=== PATIENT | male | born 2005 | race Two or more races ===

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

== ENCOUNTER 2024-08-01 19:55 | Emergency (ER) | payer OTHER, SELFPAY ==
--- OUTSIDE RECORDS SUMMARY | 2024-08-01 19:57 | XMS_ITS | Data Portability ---
Author Organization [facility] Address [address] [place] [id number] Assessment No assessment recorded. Plan of Treatment Reminders Order Date Submit Date Provider Last Modified By Organization Details Last Modified Time Details Appointments None record ed. Lab None record ed. Referral None record ed. Procedures None record ed. Surgeries None record ed. Imaging XR, finger (s), 2 or more view 024 10/13/19 24 [email or web address] Not available 4 17:21:58 Medication Orders None record ed. Patient TargetsNo targets recorded. Patient InstructionsNo instructions recorded. Reason for Referral None Reported. Problems Name Problem SNOMED Code Status Onset Date Resolution Date Notes Provider Name and Address Organization Details Recorded Time Attention deficit hyperactivity disorder, combined type [id number] Active 2011 Esequiel Gerardo MD [address] [place], [phone] [place] [address] [facility] 0 08:09:09 Notes:Problem: Attention def icit hyperactivity disorder combined Status: Chronic Problem Notes None recorded. Medical Equipment None Reported. Medications Name Sig Start Date Stop Date Status Note LastModified by Organization Details LastModified Time methylphenida te 10 mg tablet take 1 tablet by mouth twice daily, everyday, with breakfast and lunch 2020 active Not Available Not Available Not Avai lable famotidine 20 mg tablet TAKE 1 TABLET (20 MG) BY MOUTH ONCE DAILY FOR 14 DAYS. active Not Available Not Available No t Available Vitals None Recorded Social History None recorded. Functional Status None recorded. Mental Status None recorded. Family History Nothing Reported. Medical History No medical history recorded. Past Encounters Encounter ID Performer Location Encounter Start Date Encounter Closed Date Diagnosis/Indication Diagnosis SNOMED-CT Code Diagnosis ICD10 Code Diagnosis Note [id number] MD [facility] OFF[facility] [address] [place] [address] 10/13/2023 15:37:50 10/13/2023 16:06:50 Pain in left thumb [id number] M79.645 - return to work order written- XR ordered to be done if symptoms were to change/wor sen, reviewed return precaution s Health Concerns Section Related Observation LastModified by Organization Detai ls LastModified Time None Recorded Concern Status LastModified by Organization Details LastModified Time None Recorded Advance Directives Directive None Recorded Payers Encounter Date Sequence Insurance Name Policy Number Policy De León Covered Member ID De León Member ID Guarantor Name 10/13/2023 SLIDING FEE SCHEDULE - DISCOUNT Rossana Barrett Notes Date Note Type Note Provider Name and Address Organization Details Recorded Time 10/13/2023 text/html Devang is in wit h his father today for a L thumb injury.6 days ago, he jammed his L thumb while playing basketball (R hand dominant).He's been resting it and it overall feels better, has full ROM. Mild discomfort with flexion, no clicks.Mild bruising when injury happened, normal coloration now. 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 Alysha Elias MD [address] [facility] [place], [address], [facility] 10/13/2023 17:18:16
--- OUTSIDE RECORDS SUMMARY | 2024-08-01 19:57 | XMS_ITS | Clinical Summary ---
Author Organization [facility] Address [address] [place] [address] Care Team Providers Care Manager Civil Name Role Phone Pcp, No Primary Care Provider Unavailabl e Allergies Active Allergy Reactions Criticality Noted Date Comments Blueberry Rash 06/21/2022 Unlisted Allergen (Include Detail In Comments) Shortness Of Breath 06/21/2022 Pt reports is allergic to Red Bull and he has difficulty breathing when he ingests it Medications ondansetron (ZOFRAN ODT) 4 mg disintegrating tabletIndications:N ausea Place 2 Tablets (8 mg) on the tongue two times daily. 12 Tablet 3 Active Active Problems No known active problems Immunizations Immunization Administration Dates Next Due DTaP 05/16/2008, 6,2004,07/26 [id number] (Pediarix) 2004 HIB PRP-OMP (PedvaxHIB) 2004 HIB PRP-T (ActHIB,Hiberix) 2004,2004 Hepatitis A (Peds) 06/13/2009,04/15/2006 Hepatitis B (Peds) 2004,2004 Inactivated Polio Vaccine 05/16/2008,2004, 2004 Influenza Virus, Unspecified 04/10/2010,04/15/20 06 MENINGOCOCCAL VACCINE 2 VIAL 2MO-55YO (MENVEO) 10/24/2015 MMR 05/16/2008,06/27/2005 Pneumococcal conj 7-Valent (Prevnar 7) 1 2004,2004,2004,05/29 [...] Paying Living Expenses Not on file 04/28/2021 Interpersonal Safety Answer Date Record ed Are you being hit, kicked, p ushed or yelled at (see row info)? No 11/25/2023 Interpersonal Safety Abuse 12 - 18 Not on file 11/25/2023 Interpersonal Safety Ambulatory Vulnerability No t on file 11/25/2023 Sex and Gender Information Value Date Recorded Sex Assigned at Not on file Legal Sex Male 3:54 PM SURFACE BOSS Gender Identity Not on file Sexual Orientation Not on file Obstetrics History Last Filed Vital Signs Vital Sign Reading Time Taken Comments Blood Pressure 106/80 11/25/2023 11:26 PM CDT Pulse 68 11/25/2023 11:26 PM CDT Temperature 36.8 C (98.3 F) 11/25/2023 11:26 PM CDT Respiratory Rate 18 11/25/2023 11:26 PM CDT Oxygen Saturation 99% 11/25/2023 11:26 PM CDT Inhaled Oxygen Concentration - - Weight 60.8 kg (134 lb) 11/25/2023 11:26 PM CDT Height 172.7 cm (5' 8) 11/25/2023 11:26 PM CDT Body Mass Index 20.37 11/25/2023 11:26 PM CDT Plan of Treatment Health Maintenance Due Date Last Done Comments Depression screening for age 12+ 01/06/2018 01/06/2017 Well Child Check for age 3-20 01/06/2018 01/06/2017 HPV series for age 9-26 (1 - Male 3-dose series) 2019 BMI (ht and wt on same day) for age 18+ 2022 Hepatitis C screening for age 18-79 2022 COVID-19 vaccine series ( season) 2023 Influenza Vaccine (Season Ended) 2024 04/10/2010, 04/15/2006 Tetanus booster 10/23/2025 10/24/2015 Pneumococcal series for age 6-49 Aged Out 04/02/2005, 2004, 2004, Additional history exists No longer eligible based on patient's age to complete this topic Meningococcal series for age 11-21 Aged Out 10/24/2015 No longer eligible based on patient's age to complete this topic Tdap Completed 10/24/2015 HIV for age 15-65 Completed 04/25/2023 Procedures Procedure Name Priority Date/Time Associated Diagnosis Comments RAPID HIV SCREEN STAT 04/25/2023 6:49 PM SURFACE BOSS from Last 3 Months or Most Recently Relevant to Health Maintenance Results * RAPID HIV SCREEN (04/25/2023 6:49 PM SURFACE BOSS) RAPID HIV SCREEN Non-React ashkan Non-Reactiv e, Invalid 04/25/2023 7:59 PM SURFACE BOSS [facility] Comment:A NONREACTIVE test r esult means that HIV-1 or HIV-2 antibodies and HIV-1 p24 antigen were not detected in the specimen. Blood BLOOD SPECIMEN / Unknown Butterfly / Unknown 04/25/2023 6:49 PM SURFACE BOSS 04/25/2023 7:00 PM SURFACE BOSS Sophia Epps MD CHEMISTRY Final Result [facility] [address] [place] [address] from Last 3 Months or Most Recently Relevant to Health Maintenance Care Teams Manager Civil Relationship Specialty Start Date End Date Pcp, No . PCP - General 09/08/19
[2024-08-01 19:58] VITALS: BP 125/81; PULSE 78; RESP 16; TEMP 36.4; O2SAT 99; BMI 22.2
[2024-08-01 20:51] LABS: Basophils Absolute Auto 0.03 K/uL (0.00-0.30); Basophils Percent Auto 0.4 % (0.0-3.0); Eosinophils Absolute Auto 0.09 K/uL (0.00-0.50); Eosinophils Percent Auto 1.3 % (0.0-7.0); Hematocrit 43.1 % (37.0-53.0); Immature Granulocytes Abs Auto 0.01 K/uL (0.00-0.30); Immature Granulocytes Pct Auto 0.1 %; Lymphocytes Percent Auto 35.9 % (20-44); Mean Corpuscular HGB Conc 33 gm/dL (32-36); Mean Corpuscular Hemoglobin 27 pg (26-34); Mean Corpuscular Volume 83 fL (80-100); Monocytes Percent Auto 7.2 % (0.0-11.0); Neutrophils Absolute Auto 3.68 K/uL (1.7-7.0); Neutrophils Percent Auto 55.1 % (42.0-72.0); Platelet Count* 243 K/uL (140-440); RDW Coefficient of Variation % 13.3 % (11.5-15.5); Red Blood Count 5.18 m/uL (4.30-5.90); White Blood Count* 6.69 K/uL (4.50-11.00)
[2024-08-01 20:53] LABS: Slide Review Reflex No
[2024-08-01 21:03] LABS: Chloride* 101 mmol/L (96-114); Sodium* 137 mmol/L (135-149)
[2024-08-01 21:04] LABS: Potassium* 3.9 mmol/L (3.6-5.1)
[2024-08-01 21:06] LABS: Alanine Aminotransferase* 31 U/L (4-50); Alkaline Phosphatase* 107 U/L (40-150); Anion Gap 11 mEq/L (7-15); Aspartate Amino Transferase* 46 U/L (12-35); Bilirubin Direct* 0.3 mg/dL (0.0-0.5); Bilirubin Total* 0.6 mg/dL (0.1-1.5); Blood Urea Nitrogen* 24 mg/dL (5-24); Calcium* 9.4 mg/dL (8.4-10.6); Carbon Dioxide* 25 mmol/L (20-32); Creatinine* 1.1 mg/dL (0.5-1.5); Est. Creatinine Clearance* 103.09; Estimated Glomerular Filt Rate 99 ml/min; Glucose* 104 mg/dL (60-115); Total Protein* 7.9 g/dL (6.0-8.3)
--- OUTSIDE RECORDS SUMMARY | 2024-08-01 21:07 | XMS_ITS | Clinical Summary ---
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 Blood BLOOD SPECIMEN / Unknown Butterfly / Unknown 04/25/2023 6:49 PM ASSISTANT STRENGTH COACH 04/25/2023 7:00 PM ASSISTANT STRENGTH COACH Sophia Epps MD CHEMISTRY Final Result [facility] [address] [place] [address] from Last 3 Months or Most Recently Relevant to Health Maintenance Care Teams Health Care Consultant Relationship Specialty Start Date End Date Pcp, No . PCP - General 09/08/19
[2024-08-01 21:08] LABS: Acetaminophen* < 10.0 ug/mL (10.0-30.0); Ethanol* < 0.01 % (0.01-0.03); Salicylate* < 1.0 mg/dL (1.0-10)
[2024-08-01 21:37] LABS: Thyroid Stimulating Hormone* 0.775 uIU/mL (0.270-4.20)
[2024-08-01 21:54] LABS: Amphetamine Screen Urine Negative (Negative); Barbiturate Screen Urine Negative (Negative); Benzodiazepines Screen Urine Negative (Negative); Cannabinoid Screen Urine Negative (Negative); Cocaine Screen Urine Negative (Negative); Methadone Screen Urine Negative (Negative); Methamphetamines Screen Urine Negative (Negative); Opiate Screen Urine Negative (Negative); Oxycodone Screen Urine Negative (Negative); Phencyclidine Screen Urine Negative (Negative); Tricyclic Antidepressant Urine Negative (Negative)
--- NOTE | 2024-08-01 21:56 | ED_ITS ---
HPI - Anxiety General Date Seen: 08/01/24 Chief Complaint: Anxiety Stated Complaint: Shortness of breath, chest pain Time Seen by Provider: 08/01/24 20:00 Source: patient and family Mode of arrival: ambulatory Limitations: no limitations History of Present Illness HPI narrative: Patient is a 19-year-old gentleman who presents here with her mother for evaluation of an anxiety attack. He notes that this occurred approximately an hour and half to 2 hours ago, lasted for approximately an hour and felt with chest pain shortness of breath. He typically gets these after night of drinking any did drink 6 beers. He has been drinking a lot over the last few weeks on the weekends, due to a lot of stress involved with a relationship that he has in his inability to see his young child. He denies any suicidal or homicidal ideation, but says he does feel sad. He notes that he is not suicidal or homicidal associated with this. Has no chest pain now no shortness of breath no nausea vomiting. There is a family history of anxiety and also depression in the family. He also admits he thinks he may have an alcohol issue. On the weekends denies any use of any drugs other than occasional marijuana. complaint: anxiety Onset (ago): hour(s) Symptoms: dyspnea and chest pain Severity: moderate History of similar episodes: Yes Provoking factors: emotional stress Relieving factors: deep breaths Exacerbating factors: nothing Associated symptoms: chest pain Related Data Previous Rx's ?Medication ?Instructions ?Recorded polyethylene glycol 3350 17 17 g PO .daily - tid PRN #238 grams 11/20/23 gram/dose oral powder (Miralax) Allergies Allergy/AdvReac Type Severity Reaction Status Date / Time No Known Drug Allergies Allergy Verified 11/19/23 22:12 Review of Systems Status of ROS: Reports: 10 or more systems reviewed and unremarkable except as noted in History and below [facility] Social History Smoking Status: Former smoker Second hand tobacco smoke exposure: No How often do you have a drink containing alcohol: 2-4 times a month How often do you have six or more drinks on one occasion: Monthly AUDIT-C Alcohol total score: 4 Non-prescribed substance use: denies use service: No Exam Narrative: Exam Narrative: On examination with his mother in room 1 he is in no apparent distress is pleasant alert his vital signs are normal pupils equal round reactive to light there is no scleral icterus redness is TMs are normal his oropharynx is normal there is no adenopathy anterior posterior chains his chest is good air entry bilateral with no wheezing crackles noted his heart sounds are normal he has no tremulousness noted. Abdomen is soft there is no guarding no organomegaly moves all extremities independently and well. Const: Vital Signs, click to edit/add: Vital Signs - 24 hr 08/01/24 19:58 Temperature 97.6 F Pulse Rate [Left P ulse Oximeter] 78 Respiratory Rate 16 Blood Pressure [Ri ght Upper Arm] 125/81 Pulse Oximetry 99 Oxygen Delivery Me thod Room Air Course Vital Signs Vital signs: Initial Vital Signs Temperature 97.6 F 08/01/24 19:58 Temperature Source Temporal Artery Scan 08/01/24 19:58 Pulse Rate 78 08/01/24 19:58 Pulse Rhythm Regular 08/01/24 19:58 Respiratory Rate 16 08/01/24 19:58 Blood Pressure 125/81 08/01/24 19:58 Blood Pressure Mean 95 08/01/24 19:58 Blood Pressure Position Sitting 08/01/24 19:58 Pulse Oximetry 99 08/01/24 19:58 Oxygen Delivery Method Room Air 08/01/24 19:58 Vital Signs Temperature 97.6 F 08/01/24 19:58 Pulse Rate 78 08/01/24 19:58 Respiratory Rate 16 08/01/24 19:58 Blood Pressure 125/81 08/01/24 19:58 Pulse Oximetry 99 08/01/24 19:58 Oxygen Delivery Method Room Air 08/01/24 19:58 Temperature 97.6 F 08/01/24 19:58 Pulse Rate 78 08/01/24 19:58 Respiratory Rate 16 08/01/24 19:58 Blood Pressure 125/81 08/01/24 19:58 Pulse Oximetry 99 08/01/24 19:58 Oxygen Delivery Method Room Air 08/01/24 19:58 MDM - Anxiety MDM Narrative Medical decision making narrative: Differential diagnosis includes but is not limited to psychosocial stress, thyroid abnormalities, CHF, SVT, atrial fibrillation, ventricular tachycardia and ventricular fibrillation. This includes the life-threatening complications of heart failure, V-tach, and VFib Differential Diagnosis Differential diagnosis: Likely hyperventilation, panic disorder and acute anxiety Medical Records Attestation: I reviewed the patient's medical records. Lab Data Attestation: I reviewed the patient's lab results. Labs: Lab Results 08/01/24 08/01/24 Range/Units 20:40 21:30 WBC 6.69 (4.50-11.00) K/uL RBC 5.18 (4.30-5.90) m/uL Hgb 14.0 (13.5-17.5) gm/dL Hct 43.1 (37.0-53.0) % MCV 83 (80-100) fL MCH 27 (26-34) pg MCHC 33 (32-36) gm/dL RDW Coeff of Asif 13.3 (11.5-15.5) % Plt Count 243 (140-440) K/uL Neut % (Auto) 55.1 (42.0-72.0) % Lymph % (Auto) 35.9 (20-44) % [place] % (Auto) 7.2 (0.0-11.0) % Eos % (Auto) 1.3 (0.0-7.0) % Baso % (Auto) 0.4 (0.0-3.0) % Neut # (Auto) 3.68 (1.7-7.0) K/uL Lymph # (Auto) 2.40 (0.90-2.90) K/uL [place] # (Auto) 0.50 (0.00-0.90) K/UL Eos # (Auto) 0.09 (0.00-0.50) K/uL Baso # (Auto) 0.03 (0.00-0.30) K/uL Abs Immat Gran (auto) 0.01 (0.00-0.30) K/uL Imm/Tot Granulo (auto) 0.1 % Sodium 137 (135-149) mmol/L Potassium 3.9 (3.6-5.1) mmol/L Chloride 101 (96-114) mmol/L Carbon Dioxide 25 (20-32) mmol/L Anion Gap 11 (7-15) mEq/L BUN 24 (5-24) mg/dL Creatinine 1.1 (0.5-1.5) mg/dL Estimated Creat Clear 103.09 Estimated GFR 99 ml/min Glucose 104 (60-115) mg/dL Calcium 9.4 (8.4-10.6) mg/dL Total Bilirubin 0.6 (0.1-1.5) mg/dL Direct Bilirubin 0.3 (0.0-0.5) mg/dL AST 46 H (12-35) U/L ALT 31 (4-50) U/L Alkaline Phosphatase 107 (40-150) U/L Total Protein 7.9 (6.0-8.3) g/dL Albumin 5.0 (3.3-5.0) g/dL TSH 0.775 (0.270-4.20) uIU/mL Salicylates < 1.0 L (1.0-10) mg/dL Urine Opiates Screen Negative (Negative) Ur Oxycodone Screen Negative (Negative) Urine Methadone Screen Negative (Negative) Acetaminophen < 10.0 (10.0-30.0) ug/mL Ur Barbiturates Screen Negative (Negative) U Tricyclic Antidepress Negative (Negative) Ur Phencyclidine Scrn Negative (Negative) Ur Amphetamines Screen Negative (Negative) U Methamphetamines Scrn Negative (Negative) U Benzodiazepines Scrn Negative (Negative) Urine Cocaine Screen Negative (Negative) U Marijuana (THC) Screen Negative (Negative) Ur Drug Screen Comment See Note Ethyl Alcohol < 0.01 (0.01-0.03) % ECG Data Attestation: I personally reviewed and interpreted this ECG as follows: ECG interpretation date: 08/01/24 Prior ECG tracings: not available for review Interpretation: EKG done with the primary indication of shortness of breath this shows normal sinus rhythm with a ventricular rate of 70 evidence of early repolarization is noted across the precordial leads, QRS is normal at 98 milliseconds QT and QTC are normal. Assessment: Normal sinus rhythm, early repolarization otherwise normal. Discharge Plan Discharge Clinical Impression: Hyperventilation, Acute anxiety Patient Disposition: Home w/ Parent or Adult Condition: Improved Instructions: Hyperventilation (ED), Generalized Anxiety Disorder (ED), Panic Disorder (ED), Anxiety (ED) Additional Instructions: I strongly suggest you follow-up with a primary care physician for this, avoidance of alcohol is also strongly suggested, your glucose was normal as is was hemoglobin WBC count. Her drug screen did not show any evidence of drugs. Liver tests were slightly elevated which tells me your drinking too much in her liver is taking a hit. I recommend absence of alcohol, not using it for dealing with ear issues. Activity Level: Light activity Discharge Diet: Regular Prescriptions: No Action polyethylene glycol 3350 [Miralax] 17 gram/dose powder 17 g PO .daily - tid PRNQty: 238 0RF Follow Up/Referrals: Provider,Not a Local [Primary Care Provider] - Stand Alone Forms: [facility] Info Instructions
[2024-08-01 22:11] VITALS: BP 123/78; PULSE 76; RESP 20
== END 2024-08-01 22:11 | disposition home or self-care (01) ==
PROVIDERS: Emergency Provider Family Medicine
DX: R06.4 Hyperventilation (principal); F41.9 Anxiety disorder, unspecified
CPT/HCPCS: 36415; 80048; 80076; 80143; 80179; 80306; 82077; 84443; 85025; 93005; 99284

== ENCOUNTER 2024-12-27 14:55 | Emergency (ER) | payer OTHER, SELFPAY ==
[2024-12-27 14:57] VITALS: BP 128/70; PULSE 98; RESP 16; TEMP 36.3; O2SAT 98; BMI 24.3
--- OUTSIDE RECORDS SUMMARY | 2024-12-27 14:57 | XMS_ITS | Clinical Summary ---
Author Organization [employer] [facility] Address [address] [place] [id number] Care Team Providers Care Manager Instrumentation Name Role Phone Pcp, No Primary Care Provider Unavailabl e Allergies Active Allergy Reactions Criticality Noted Date Comments Blueberry Rash 06/21/2022 Unlisted Allergen (Include Detail In Comments) Shortness Of Breath 06/21/2022 Pt reports is allergic to Red Bull and he has difficulty breathing when he ingests it Medications ondansetron (ZOFRAN ODT) 4 mg disintegrating tabletIndications: Nausea Place 2 Tablets (8 mg) on the tongue two times daily. 12 Tablet 06/21/19 23 Active polyethylene glycoL 17 gram/scoop powderIndications: Constipation, unspecified constipation type Mix 1 scoop (17 g) in liquid then take by mouth once daily. 238 g 09/10/19 25 Active bisacodyL 10 mg suppositoryIndicat ions:Left lower quadrant abdominal pain Insert 1 Suppository (10 mg) rectally once daily if needed for Constipation. 14 Suppository 09/10/19 25 Active Active Problems No known active problems Immunizations Immunization Administration Dates Next Due DTaP 05/16/2008, 6,2004,07/26 [id number] (Pediarix) 2004 HIB PRP-OMP (PedvaxHIB) 2004 HIB PRP-T (ActHIB,Hiberix) 2004,2004 Hepatitis A (Peds) 06/13/2009,04/15/2006 Hepatitis B (Peds) 2004,2004 Inactivated Polio Vaccine 05/16/2008,2004, 2004 Influenza Virus, Unspecified 04/10/2010,04/15/20 MENINGOCOCCAL VACCINE 2 VIAL [id number]-55YO (MENVEO) 10/24/2015 [...] or yelled at (see row info)? 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 Gender Identity Not on file Sexual Orientation Not on file Obstetrics History Last Filed Vital Signs Vital Sign Reading Time Taken Comments Blood Pressure 119/70 09/10/2024 12:11 AM CDT Pulse 72 09/10/2024 12:11 AM CDT Temperature 36.9 C (98.5 F) 09/09/2024 10:43 PM CDT Respiratory Rate 16 09/10/2024 12:1 1 AM CDT Oxygen Saturation 98% 09/10/2024 12: 11 AM CDT Inhaled Oxygen Concentration - - Weight 67.9 kg (149 lb 12.8 oz) 025 10:43 PM CDT Height 172.7 cm (5' 8) 09/09/2024 10:4 3 PM CDT Body Mass Index 22.78 09/09/2024 10:43 PM CDT Plan of Treatment Health Maintenance Due Date Last Done Comments Depression screening for age 12+ 01/06/2018 01/06/2017 Well Child Check for age 3-20 01/06/2018 01/06/2017 HPV series for age 9-26 (1 - Male 3-dose series) 2019 BMI (ht and wt on same day) for age 18+ 2022 Hepatitis C screening for age 18-79 2022 COVID-19 vaccine series ( - season) 2023 Influenza Vaccine (#1) 2024 04/10/2010, 2005 Tetanus booster 10/23/2025 10/24/2015 Hepatitis B series for 19+ Completed 11/26, 2004, 2004 Pneumococcal series for age 6-49 Aged Out 04/02/2005, 2004, 2004, Additional history exists No longer eligible based on patient's age to complete this topic Meningococcal series for age 11-21 Aged Out 10/24/2015 No longer eligible based on patient's age to complete this topic HIV for age 15-65 Completed 04/25/2023 Procedures Procedure Name Priority Date/Time Associated Diagnosis Comments RAPID HIV SCREEN STAT 04/25/2023 6:49 PM INSURANCE RISK SURVEYOR from Last 3 Months or Most Recently Relevant to Health Maintenance Results * RAPID HIV SCREEN (04/25/2023 6:49 PM INSURANCE RISK SURVEYOR) RAPID HIV SCREEN Non-React ashkan Non-Reactiv e, Invalid 04/25/2023 7:59 PM INSURANCE RISK SURVEYOR [facility] Comment:A NONREACTIVE test r esult means that HIV-1 or HIV-2 antibodies and HIV-1 p24 antigen were not detected in the specimen. Blood BLOOD SPECIMEN / Unknown Butterfly / Unknown 04/25/2023 6:49 PM INSURANCE RISK SURVEYOR 04/25/2023 7:00 PM INSURANCE RISK SURVEYOR us Sophia Epps MD CHEMISTRY Final Result [facility] [address] [place] [address] from Last 3 Months or Most Recently Relevant to Health Maintenance Care Teams Manager Instrumentation Relationship Specialty Start Date End Date Pcp, No . PCP - General 09/08/19
--- NOTE | 2024-12-27 15:06 | ED.EAR ---
HPI - Ear Problem General Chief complaint: Ear/Nose/Throat Problem Stated complaint: R ear pain Time Seen by Provider: 12/27/24 14:57 History of Present Illness HPI Narrative: Patient is a 19-year-old gentleman who comes in today with right-sided ear pain of 2 days duration. Patient has felt fullness in the right ear as well as some nausea and general malaise. He has had no fevers no chills no night sweats. He has had no cough no shortness of breath no pharyngitis. No fevers no chills. Symptoms again of present the last 2-3 days with progression of symptoms. Pain is sharp localized to the right ear. Related Data Home Medications ?Medication ?Instructions ?Recorded ?Confirmed No Known Home Medications 12/27/24 12/27/24 Allergies Allergy/AdvReac Type Severity Reaction Status Date / Time blueberry Allergy Intermediate Verified 12/27/24 14:59 Review of Systems Status of ROS: Reports: 10 or more systems reviewed and unremarkable except as noted in History and below PFSH PFS Social History Smoking Status: Former smoker Second hand tobacco smoke exposure: No How often do you have a drink containing alcohol: 2-4 times a month How often do you have six or more drinks on one occasion: Monthly AUDIT-C Alcohol total score: 4 Non-prescribed substance use: denies use service: No Exam Narrative: Exam Narrative: EXAM GENERAL: Patient appears comfortable and well. EYES: No scleral icterus. ENT: Right tympanic membrane shows dullness erythema left tympanic membrane is normal. Remainder the HEENT exam is unremarkable. THYROID: no thyroid nodules or thyromegaly. LYMPH: No supraclavicular or cervical lymphadenopathy. SKIN: Visible skin seen during exam normal or with benign process only. EXT: No dependent lower extremity pedal edema. HEART: Regular rate and rhythm with no murmurs, rubs, or gallops. LUNGS: Clear to auscultation bilaterally with no crackles or wheezes. ABD: Soft, non tender, non distended. PSYCH: Good eye contact, speech is not pressured. Const: Vital Signs, click to edit/add: Vital Signs - 24 hr 12/27/24 14:57 Temperature 97.3 F L Pulse Rate [Pulse Oximeter] 98 Respiratory Rate 16 Blood Pressure [Ri ght Upper Arm] 128/70 Pulse Oximetry 98 Oxygen Delivery Me thod Room Air Course Course ED Course: Patient seen and examined. He has redness of his right ear as well as ear pain and nausea. Treat him for otitis media with amoxicillin and Zofran for his nausea. He will advance his diet activity as tolerated Tylenol Motrin rest and fluids follow-up with his primary physician as needed. Vital Signs Vital signs: Initial Vital Signs Temperature 97.3 F L 12/27/24 14:57 Temperature Source Temporal Artery Scan 12/27/24 14:57 Pulse Rate 98 12/27/24 14:57 Respiratory Rate 16 12/27/24 14:57 Blood Pressure 128/70 12/27/24 14:57 Blood Pressure Mean 89 12/27/24 14:57 Blood Pressure Position Sitting 12/27/24 14:57 Pulse Oximetry 98 12/27/24 14:57 Oxygen Delivery Method Room Air 12/27/24 14:57 Vital Signs Temperature 97.3 F L 12/27/24 14:57 Pulse Rate 98 12/27/24 14:57 Respiratory Rate 16 12/27/24 14:57 Blood Pressure 128/70 12/27/24 14:57 Pulse Oximetry 98 12/27/24 14:57 Oxygen Delivery Method Room Air 12/27/24 14:57 Temperature 97.3 F L 12/27/24 14:57 Pulse Rate 98 12/27/24 14:57 Respiratory Rate 16 12/27/24 14:57 Blood Pressure 128/70 12/27/24 14:57 Pulse Oximetry 98 12/27/24 14:57 Oxygen Delivery Method Room Air 12/27/24 14:57 Discharge Plan Discharge Clinical Impression: Otitis media Patient Disposition: Home, Self-Care Condition: Stable Instructions: Ear Infection (ED) Additional Instructions: Amoxicillin as directed Tylenol as directed Motrin as directed Follow-up with your doctor as needed. Zofran as needed for nausea. Activity Level: No Restrictions Discharge Diet: Regular Prescriptions: No Action No Known Home Medications Follow Up/Referrals: Provider,Not a Local [Primary Care Provider, Family Practice] Stand Alone Forms: [email or web address] Info Instructions
== END 2024-12-27 15:28 | disposition home or self-care (01) ==
LOC: ED 15:19
PROVIDERS: Emergency Provider Internal Medicine
DX: H66.91 Otitis media, unspecified, right ear (principal)
CPT/HCPCS: 99283

== ENCOUNTER 2025-03-03 09:09 | Emergency (ER) | payer OTHER, SELFPAY ==
[2025-03-03 09:14] VITALS: BP 142/88; PULSE 83; RESP 16; TEMP 36.2; O2SAT 98; BMI 23.6
--- OUTSIDE RECORDS SUMMARY | 2025-03-03 09:20 | XMS_ITS | Clinical Summary ---
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 Gender Identity Not on file Sexual Orientation [...] 3-20 01/06/2018 01/06/2017 HPV series for age 9-45 (1 - Male 3-dose series) 2019 BMI (ht and wt on same day) for age 18+ 2022 Hepatitis C screening for age 18-79 2022 Influenza Vaccine (#1) 2024 04/10/2010, 2005 Tetanus booster 10/23/2025 10/24/2015 RSV vaccine for adults or (1 - 1-dose 75+ series) 2079 Hepatitis B series for 19+ Completed 11/26, [...] RAPID HIV SCREEN STAT 04/25/2023 6:49 PM BANK RUNNER from Last 3 Months or Most Recently Relevant to Health Maintenance Results * RAPID HIV SCREEN (04/25/2023 6:49 PM BANK RUNNER) RAPID HIV SCREEN Non-React ashkan Non-Reactiv e, Invalid 04/25/2023 7:59 PM BANK RUNNER [facility] Comment:A NONREACTIVE test r esult means that HIV-1 or HIV-2 antibodies and HIV-1 p24 antigen were not detected in the specimen. Blood BLOOD SPECIMEN / Unknown Butterfly / Unknown 04/25/2023 6:49 PM BANK RUNNER 04/25/2023 7:00 PM BANK RUNNER Sophia Epps MD CHEMISTRY Final Result [facility] [address] [place] [address] from Last 3 Months or Most Recently Relevant to Health Maintenance Care Teams Pole Lift Operator Relationship Specialty Start Date End Date Pcp, No . PCP - General 09/08/19
--- NOTE | 2025-03-03 09:42 | ED_ITS ---
HPI - Abdominal Pain General Date Seen: 03/03/25 Chief Complaint: Abdominal Pain Stated Complaint: Abdominal pain Time Seen by Provider: 03/03/25 09:13 Source: patient, family, RN notes reviewed and old records reviewed Mode of arrival: ambulatory Limitations: no limitations History of Present Illness HPI narrative: Patient is a delightful 19-year-old gentleman who presents here with his mother, for evaluation abdominal pain he has had for couple days. He describes in his epigastric region, makes him nauseous but he has not vomited less intake of food associated with this but food does not cause worsening pain. There is no radiation of discomfort to his back or his lower quadrants. He has noted some very hard stools, almost pellet-like. But no blood or mucus associated with thi s he does have a history I can see in his chart of constipation. Also has a slight sore throat associated with this, no fever, slight cough also. 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 He is involved in heterosexual relationships. Never before been positive for chlamydia or gonorrhea. Has not taken any medications for this, no Tylenol or any other [id number] medications. There is a history of diabetes in the family, he has been urinating more he tells me, but has not lost weight. MD elicited complaint: abdominal pain Pertinent past history: constipation Onset (ago): day(s) Pain Consistency: intermittent and colicky Location: epigastric Severity: moderate Radiation: none Migration to: no migration Exacerbating factors: nothing Relieving factors: nothing Context: history of similar episodes Associated symptoms: nausea Related Data Previous Rx's ?Medication ?Instructions ?Recorded meclizine 25 mg tablet 25 mg PO TID #14 tabs Allergies Allergy/AdvReac Type Severity Reaction Status Date / Time blueberry Allergy Intermediate Verified 12/28/24 12:40 Review of Systems Status of ROS Reports: 10 or more systems reviewed and unremarkable except as noted in History and below [facility] Social History Smoking Status: Current some day smoker Do you use any of these nicotine containing products: Vaping Products Second hand tobacco smoke exposure: No How often do you have a drink containing alcohol: 2-4 times a month How often do you have six or more drinks on one occasion: Monthly AUDIT-C Alcohol total score: 4 Non-prescribed substance use: denies use service: No Exam Narrative: Exam Narrative: On examination in room 1 he is delightful he is in no apparent distress with normal vital signs. Nontoxic, answer my questions appropriately. With his mother there. Pupils are equal round reactive to light there is no scleral icte tunde redness, TMs bilaterally normal his oropharynx is very slightly reddened, no tonsillar enlargement or swelling is noted. Neck is supple full range of motion, chest is good air entry bilateral with no wheezing crackles noted, heart sounds are normal. Abdomen is soft and scaphoid, he has very mild tenderness noted in the epigastric region he does not have a positive Valadez sign, there is no lower abdominal tenderness at all, no inguinal hernias, normal male genitalia with no testicular enlargement or pain, uncircumcised. Skin reveals no petechiae rashes negative jump test. Const: Vital Signs, click to edit/add: Vital Signs - 24 hr 03/03/25 09:14 Temperature 97.2 F L Pulse Rate [Pulse Oximeter] 83 Respiratory Rate 16 Blood Pressure [Ri ght Upper Arm] 142/88 H Pulse Oximetry 98 Oxygen Delivery Me thod Room Air Documenting provider has reviewed patient's vital signs: yes Common normals: no apparent distress Course Course ED Course: I discussed with the patient and parent, urinalysis is benign we will run the chlamydia and gonorrhea, and call you if there is seems to be any issues associated with this the triple swab was negative, and the random glucose test we did was normal. I do believe this is related likely to constipation, and we will try some MiraLax, however, if things worsen, or change with more right- sided discomfort fevers chills, then please return, sometimes early presentations of other processes such as appendicitis can be like this. They were comfortable with this plan. Vital Signs Vital signs: Initial Vital Signs Temperature 97.2 F L 03/03/25 09:14 Temperature Source Temporal Artery Scan 03/03/25 09:14 Pulse Rate 83 03/03/25 09:14 Respiratory Rate 16 03/03/25 09:14 Blood Pressure 142/88 H 03/03/25 09:14 Blood Pressure Mean 106 H 03/03/25 09:14 Blood Pressure Position Sitting 03/03/25 09:14 Pulse Oximetry 98 03/03/25 09:14 Oxygen Delivery Method Room Air 03/03/25 09:14 Vital Signs Temperature 97.2 F L 03/03/25 09:14 Pulse Rate 83 03/03/25 09:14 Respiratory Rate 16 03/03/25 09:14 Blood Pressure 142/88 H 03/03/25 09:14 Pulse Oximetry 98 03/03/25 09:14 Oxygen Delivery Method Room Air 03/03/25 09:14 Temperature 97.2 F L 03/03/25 09:14 Pulse Rate 83 03/03/25 09:14 Respiratory Rate 16 03/03/25 09:14 Blood Pressure 142/88 H 03/03/25 09:14 Pulse Oximetry 98 03/03/25 09:14 Oxygen Delivery Method Room Air 03/03/25 09:14 Medications Administered Medications: Discontinued Medications Generic Name Dose Route Start Last Admin Trade Name Maxiq PRN Reason Stop Dose Admin Acetaminophen 1,000 mg 03/03/25 09:40 03/03/25 09:53 Acetaminophen 500 Mg Tablet PO 03/03/25 09:41 1,000 mg ONCE ONE Administration MDM - Abdominal Pain MDM Narrative Medical decision making narrative: During this evaluation of this patient I considered multiple differential diagnosis is which included the life-threatening such as appendicitis, aortic aneurysm, mesenteric ischemia, bowel perforation, volvulus, and bowel obstruction. Other differential diagnosis is include but are not limited to cholecystitis, pancreatitis, hepatitis, gastritis, GERD, diverticulitis, peptic ulcer disease, pyelonephritis/UTI, renal colic/stone, testicular torsion as well as other acute scrotal processes, inflammatory bowel disease, as well as other etiologies I did talk to him about etiologies of this. Once a came out that he was worried about STDs, then I think this is actually 1 of the primary reasons he is here. We will do urine test for this. Along with the UA, we will do glue, tree test, here in the emergency room. He does have a history of constipation notable in his chart in the history of hard pellet sized stools makes me think of this. His abdomen is otherwise benign here. Triple swab was ordered by my nurses which I think is reasonable. We will give him some Tylenol, and I will see how the workup goes. Medical Records Attestation: I reviewed the patient's medical records. Lab Data Attestation: I reviewed the patient's lab results. Labs: Lab Results 03/03/25 03/03/25 03/03/25 Range/Units 09:15 09:40 09:45 Urine Color Yellow (Yellow) Urine Appearance Clear (Clear) Urine pH 7.5 (5.0-8.5) Ur Specific [place] 1.025 (1.000-1.030) Urine Protein Negative (Negative) Urine Glucose (UA) Negative (Negative) Urine Ketones Negative (Negative) Urine Blood Negative (Negative) Urine Nitrite Negative (Negative) Urine Bilirubin Negative (Negative) Urine Urobilinogen 0.2 (0.2-1.0) Ur Leukocyte Esterase Negative (Negative) Urine RBC 0-2 (0-2) Urine WBC 0-2 (0-5) Ur Squamous Epith Cells Few (None-Few) Urine Bacteria None (None) SARS-CoV-2 (PCR) Negative SARS-CoV-2 (Negative) Influenza Type A (PCR) Negative PCR FLU A (Negative) Influenza Type B (PCR) Negative PCR FLU B (Negative) POC Glucose 107 (60-115) mg/dl Discharge Plan Discharge Clinical Impression: Abdominal pain, Constipation, Cough Patient Disposition: Home w/ Parent or Adult Condition: Stable Instructions: Constipation (ED), High Fiber Diet (ED), Abdominal Pain (ED), Acute Cough (ED) Additional Instructions: We will discharge home, I would suggest some MiraLax and see if we can improve the abdominal pain in constipation situation, the other nice medication to use on a more daily basis is called senna, this is a nice natural laxative, the does not have a lot of bad side effects. If the pain does not improve her worsens or localizes specifically on the right side, I would worry about something like appendicitis, I do not see any evidence of that right now, but be vigilant if this worsens then to come back and get checked. We will call you if the chlamydia or gonorrhea test is positive, do think this is a little bit unlikely as the urine was otherwise clean showing no evidence of infection. Return as needed as above. For the cough I do not see any evidence of pneumonia or anything bad, full out a coughs stick around for some time usually from a viral cause. He had some other great questions that I think a primary care physician would be very helpful. I have labeled a couple here that are very good that you can see in follow-up. Note for work given. Activity Level: Light activity Prescriptions: No Action meclizine 25 mg tablet 25 mg PO TID Qty: 14 0RF Follow Up/Referrals: Provider,Not a Local [Primary Care Provider, Family Practice] Stand Alone Forms: Work/School Release, MyHealth Info Instructions
[2025-03-03 09:44] LABS: Glucose, Point-of-Care* 107 mg/dl (60-115)
--- OUTSIDE RECORDS SUMMARY | 2025-03-03 09:52 | XMS_ITS | Data Portability ---
Author Organization [facility] Address [address] [place] [id number] Assessment No assessment recorded. Plan of Treatment [...] Time Attention deficit hyperactivity disorder, combined type [id number] Active 2011 Esequiel Gerardo MD [address] [place], [phone] [place] [address] [facility] 0 08:09:09 Notes:Problem: Attention def icit hyperactivity [...] Not Available Not Available No t Available meclizine 25 mg tablet TAKE 1 TABLET BY MOUTH THREE TIMES DAILY active Not Available Not Available No t Available Vitals None Recorded Social History None recorded. Functional Status None recorded. Mental Status None recorded. Family History Nothing Reported. Medical History No medical history recorded. Past Encounters Encounter ID Performer Location Encounter Start Date Encounter Closed Date Diagnosis/Indication Diagnosis SNOMED-CT Code Diagnosis ICD10 Code Diagnosis IMO Codes Diagnosis Note [id number] Alysha Elias MD [facility] [address] [id number] 10/13/2023 15:37:50 10/13/2023 16:06:50 Pain in left thumb [id number] M79.645 - return to work order written- XR ordered to be done if symptoms were to change/wor sen, reviewed return precaution s Health Concerns Section Related Observation LastModified by Organization Detai ls LastModified Time None Recorded Concern Status LastModified by Organization Details LastModified Time None Recorded Advance Directives Directive None Recorded Payers Insurance Date Sequence Insurance Name Policy Number Policy De León Covered Member ID De León Member ID Guarantor Name 04/04/2020 SLIDING FEE SCHEDULE - DISCOUNT Rossana Barrett Notes Date Note Type Note Provider Name and Address Organization Details Recorded Time 10/13/2023 text/html ROS as noted in the HPI Devang is in with his father today for a L thumb injury.6 days ago, he jammed his L thumb while playing basketball (R hand dominant).He's been resting it and it overall feels better, has full ROM. Mild discomfort with flexion, no clicks.Mild bruising when injury happened, normal coloration now. 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 Alysha Elias MD [address] [place], [phone], [facility] 10/13/2023 17:18:16
[2025-03-03] MEDS: ACETAMINOPHEN 500 MG TABLET 1000 MG PO (09:53)
[2025-03-03 10:04] LABS: PCR FLU A Negative PCR FLU A (Negative); PCR FLU B Negative PCR FLU B (Negative); SARS PCR* Negative SARS-CoV-2 (Negative)
[2025-03-03 10:26] LABS: Appearance Urine Clear (Clear)
[2025-03-03 11:03] VITALS: BP 120/64; PULSE 61; RESP 16; TEMP 36.2; O2SAT 99
[2025-03-03 11:42] LABS: Chlamydia DNA Amplified* NOT DETECTED (No Detected); GC DNA Amplified* NOT DETECTED (No Detected)
== END 2025-03-03 11:03 | disposition home or self-care (01) ==
PROVIDERS: Emergency Medicine; Emergency Provider Family Medicine
DX: R10.13 Epigastric pain (principal); K59.00 Constipation, unspecified; R05.9 Cough, unspecified; Z11.3 Encounter for screening for infections with a predominantly sexual mode of transmission
CPT/HCPCS: 36415; 81001; 82947; 82962; 87491; 87591; 87636; 99283; 99284; A9270